=== PATIENT | male | born 1940 | race Hispanic/Latino ===

== ENCOUNTER 2017-12-17 08:02 | Day surgery (SDC) | payer OTHER ==
[~2017-12-17] VITALS: Ht 170.2 cm; Wt 85.3 kg
[~2017-12-17 08:02] MED LIST: ATOR40TA71 PO; CLOP75TA32 PO; GABA-531 PO; LISI-613 PO; METO50TA18 PO; OMEP20CA10 PO
[2017-12-17 08:06] VITALS: BP 127/74
[2017-12-17] MEDS: SODIUM CHLORIDE 0.9% 1000ML 1,000 ML IV ONE (09:15)
[2017-12-17] MEDS ORDERED: MEPERIDINE-PF 50 MG/ML SYG ONE ×3 (10:26→10:49)
[2017-12-17] MEDS ORDERED: MIDAZOLAM HCL 1 MG/ML 2ML VIAL ONE ×2 (10:26→10:49)
[2017-12-17 11:00] VITALS: BP 104/50
== END 2017-12-17 11:53 | disposition home or self-care (01) ==
LOC: DAH 08:02 → ENDO 08:02
PROVIDERS: ATTEND Internal Medicine Gastroenterology
DX: Z09 Encounter for follow-up examination after completed treatment for conditions other than malignant neoplasm (principal); Z86.010 Personal history of colon polyps; K57.30 Diverticulosis of large intestine without perforation or abscess without bleeding; Z68.38 Body mass index [BMI] 38.0-38.9, adult; I10 Essential (primary) hypertension; I25.10 Atherosclerotic heart disease of native coronary artery without angina pectoris; Z95.0 Presence of cardiac pacemaker; Z95.1 Presence of aortocoronary bypass graft; Z98.890 Other specified postprocedural states
CPT/HCPCS: G0105 ×8; A4606; J2175; J2250; J7030

== ENCOUNTER → 2021-11-24 | Outpatient (CLI) | payer OTHER ==
[~2021-11-24] MED LIST changes: -LISI-613 PO; +LISI20TA24 PO; -OMEP20CA10 PO; +OMEP20CA12 PO
== END | disposition home or self-care (01) ==
LOC: SHCH 10:15
PROVIDERS: ATTEND Internal Medicine Cardiovascular Disease
DX: I11.0 Hypertensive heart disease with heart failure (principal); I50.42 Chronic combined systolic (congestive) and diastolic (congestive) heart failure; I08.8 Other rheumatic multiple valve diseases; I48.0 Paroxysmal atrial fibrillation; I25.2 Old myocardial infarction; E78.5 Hyperlipidemia, unspecified; Z95.0 Presence of cardiac pacemaker; Z95.1 Presence of aortocoronary bypass graft
CPT/HCPCS: 93306

== ENCOUNTER → 2022-09-07 | Outpatient (CLI) | payer OTHER ==
[2022-09-07 12:43] LABS: CREATININE 1.2 mg/dL (0.5-1.5); POTASSIUM 4.7 mmol/L (3.5-5.1)
== END | disposition home or self-care (01) ==
LOC: LAB 08:30
PROVIDERS: ATTEND Internal Medicine Cardiovascular Disease
DX: I71.21 Aneurysm of the ascending aorta, without rupture (principal); I95.2 Hypotension due to drugs; I50.32 Chronic diastolic (congestive) heart failure
CPT/HCPCS: 36415; 80048; 83880

== ENCOUNTER → 2023-03-21 | Outpatient (CLI) | payer OTHER ==
[~2023-03-21] VITALS: Ht 170.2 cm; Wt 88.6 kg
[~2023-03-21] MED LIST changes: +AEC81 PO; +ATOR-2 PO; +DAPA10TA PO; +FOLIC ACID PO; +METO-409 PO; +PANT20TA18 PO; +SACU1TAB PO; +SPIR25TA6 PO; +TORS20TA4 PO; +VITAD50000 PO; +[UNRECOGNIZED DRUG - CODE] PO
[2023-03-21 15:31] LABS: BASOPHILS % (AUTO) 0.3 % (0.0-5.0); EOSINOPHILS % (AUTO) 1.3 % (0.0-8.0); HEMATOCRIT 33.5 % (42-54); LYMPHOCYTES % (AUTO) 11.3 % (21.0-51.0); MEAN CORPUSCULAR HEMOGLOBIN 35.6 pg (27.0-33.0); MEAN CORPUSCULAR HGB CONC 32.8 g/dL (32.0-36.0); MEAN CORPUSCULAR VOLUME 108.4 fL (79-99); PLATELET COUNT (AUTO) 94 K/uL (130-400); RED BLOOD CELL COUNT(AUTO) 3.09 MIL/uL (4.50-6.20); RED CELL DISTRIBUTION WIDTH 18.3 % (11.0-15.5); WHITE BLOOD COUNT (AUTO) 7.6 K/uL (4.8-10.8)
[2023-03-21 15:36] LABS: APPEARANCE,URINE CLEAR (CLEAR); BILIRUBIN,URINE NEGATIVE (NEGATIVE); COLOR,URINE LIGHT-YELLOW (YELLOW); GLUCOSE, URINE (UA) 500 mg/dL (NEGATIVE); KETONES,URINE NEGATIVE (NEGATIVE); LEUKOCYTE ESTERASE ,URINE 75 Leu/uL (NEGATIVE); NITRATE,URINE NEGATIVE (NEGATIVE); OCCULT BLOOD,URINE NEGATIVE (NEGATIVE); PH,URINE 5.5 (5.0-8.0); PROTEIN,URINE NEGATIVE (NEGATIVE); UROBILINOGEN,URINE 0.2 mg/dL (0.2-1.0)
[2023-03-21 15:43] LABS: MUCUS,URINE RARE LPF (None Seen); RBC,URINE 0-1 /HPF (0-1)
[2023-03-21 15:44] LABS: CREATININE 1.8 mg/dL (0.5-1.5); INR 0.97 (0.85-1.15); POTASSIUM 4.8 mmol/L (3.5-5.1); PROTHROMBIN TIME 10.6 SEC (9.6-11.6)
[2023-03-21 15:46] LABS: PARTIAL THROMBOPLASTIN TIME 28.2 SEC (26.3-35.5)
[2023-03-21 15:54] VITALS: BP 96/52
[2023-03-21 15:59] LABS: B-TYPE NATRIURETIC PEPTIDE 90 pg/mL (0-100)
== END | disposition home or self-care (01) ==
LOC: DAH 10:00 → EDSTATUS 15:00
PROVIDERS: ATTEND Internal Medicine Cardiovascular Disease
DX: Z01.810 Encounter for preprocedural cardiovascular examination (principal); I35.0 Nonrheumatic aortic (valve) stenosis; I50.22 Chronic systolic (congestive) heart failure; Z79.01 Long term (current) use of anticoagulants; Z79.899 Other long term (current) drug therapy
CPT/HCPCS: 36415; 71045; 80048; 81001; 83880; 85025; 85610; 85730; 87088; 93005

== ENCOUNTER 2023-08-21 07:34 | Observation (INO) | payer OTHER ==
[2023-08-19 08:42] LABS: EOSINOPHILS # (AUTO) 0.02 K/uL (0.00-0.70); EOSINOPHILS % (AUTO) 0.4 % (0.0-8.0); HEMATOCRIT 35.8 % (42-54); IMMATURE GRANULOCYTE ABSOLUTE 0.06 K/uL (0-1); LYMPHOCYTES % (AUTO) 20.3 % (21.0-51.0); MEAN CORPUSCULAR HEMOGLOBIN 36.5 pg (27.0-33.0); MEAN CORPUSCULAR HGB CONC 33.2 g/dL (32.0-36.0); MEAN CORPUSCULAR VOLUME 109.8 fL (79-99); MONOCYTES # (AUTO) 0.4 K/uL (0.1-1.0); MONOCYTES % (AUTO) 7.9 % (3.0-13.0); NEUTROPHILS # (AUTO) 3.5 K/uL (1.8-7.7); NEUTROPHILS % (AUTO) 70.2 % (40.0-77.0); PLATELET COUNT (AUTO) 110 K/uL (130-400); RED BLOOD CELL COUNT(AUTO) 3.26 MIL/uL (4.50-6.20); RED CELL DISTRIBUTION WIDTH 18.3 % (11.0-15.5); WHITE BLOOD COUNT (AUTO) 4.9 K/uL (4.8-10.8)
[2023-08-19 08:54] LABS: CREATININE 1.2 mg/dL (0.5-1.5); POTASSIUM 4.4 mmol/L (3.5-5.1)
[2023-08-19 08:55] LABS: INR 0.94 (0.85-1.15)
[2023-08-19 09:14] VITALS: BP 117/55; PULSE 78; RESP 19
[2023-08-21] VITALS (12 sets, daily range): BP systolic 112–132; BP diastolic 43–60; PULSE 56–88; RESP 16–20; O2SAT 95–98
[~2023-08-21] VITALS: Ht 170.2 cm; Wt 81.3 kg
[~2023-08-21 07:34] MED LIST changes: -ATOR40TA71 PO; +ESCI10TA PO; +FERR325T29 PO; -GABA-531 PO; -LISI20TA24 PO; -METO50TA18 PO; +MULT-1289 PO; +NITR0.4T50 SL; -OMEP20CA12 PO; -PANT20TA18 PO; -SPIR25TA6 PO; +TORS10TA18 PO; -TORS20TA4 PO
[2023-08-21] MEDS ORDERED: 0.9%NACL 1000ML 1,000 ML IV ONE (08:32)
[2023-08-21] MEDS ORDERED: LIDOCAINE HCL 1% MDV 50ML VIAL ONE (10:28)
[2023-08-21] MEDS ORDERED: BUPIVACAINE/PF 0.25% 30ML VIAL IJ ONE (10:29)
[2023-08-21] MEDS ORDERED: MIDAZOLAM HCL 1 MG/ML 2ML VIAL ONE ×5 (10:29→15:44)
[2023-08-21] MEDS ORDERED: MEPERIDINE-PF 25 MG/ML SYG ONE ×5 (10:29→15:43)
[2023-08-21] MEDS ORDERED: CEFAZOLIN SODIUM 1 GM VIAL ONE ×2 (10:30→14:29)
[2023-08-21] MEDS ORDERED: IOHEXOL-350 50ML VIAL IV ONE ×3 (10:32→13:06)
[2023-08-21] MEDS ORDERED: THROMBIN-JMI 5000 UNIT/VIAL TP ONE ×2 (15:46→15:58)
[2023-08-21] MEDS ORDERED: BACITRACIN 1 EACH PACKET TP ONE ×2 (16:09→16:13)
[2023-08-21] MEDS ORDERED: NITROGLYCERIN 0.4 MG SL TAB SL SCH (17:30)
[2023-08-21] MEDS ORDERED: ACETAMINOPHEN 500 MG TABLET PO PRN (17:30)
[2023-08-21] MEDS: ACETAMINOPHEN WITH CODEINE 1 TAB TAB PO PRN (17:59)
[2023-08-21] MEDS: SACUBITRIL/VALSARTAN 1 EACH TABLET PO SCH (20:18)
[2023-08-21] MEDS ORDERED: ATORVASTATIN 40 MG TABLET PO SCH (21:00)
[2023-08-21] MEDS ORDERED: NON-FORMULARY MEDICATION 1 EACH (Atorvastatin Calcium 80 MG) PO SCH (21:00)
[2023-08-22] MEDS: ACETAMINOPHEN WITH CODEINE 1 TAB TAB PO PRN ×2 (00:13→08:58)
[2023-08-22 00:25] VITALS: BP 129/54; PULSE 63; RESP 20
[2023-08-22 03:25] VITALS: BP 112/61; PULSE 60; RESP 18
[2023-08-22 05:03] LABS: BASOPHILS # (AUTO) 0.01 K/uL (0.00-0.20); BASOPHILS % (AUTO) 0.1 % (0.0-5.0); HEMATOCRIT 30.1 % (42-54); IMMATURE GRANULOCYTE ABSOLUTE 0.08 K/uL (0-1); LYMPHOCYTES # (AUTO) 0.7 K/uL (1.0-4.8); LYMPHOCYTES % (AUTO) 8.3 % (21.0-51.0); MEAN CORPUSCULAR HEMOGLOBIN 36.2 pg (27.0-33.0); MEAN CORPUSCULAR HGB CONC 32.2 g/dL (32.0-36.0); MEAN CORPUSCULAR VOLUME 112.3 fL (79-99); MONOCYTES # (AUTO) 0.8 K/uL (0.1-1.0); MONOCYTES % (AUTO) 9.6 % (3.0-13.0); NEUTROPHILS # (AUTO) 6.4 K/uL (1.8-7.7); PLATELET COUNT (AUTO) 73 K/uL (130-400); RED BLOOD CELL COUNT(AUTO) 2.68 MIL/uL (4.50-6.20); RED CELL DISTRIBUTION WIDTH 18.2 % (11.0-15.5); WHITE BLOOD COUNT (AUTO) 7.9 K/uL (4.8-10.8)
[2023-08-22 05:16] LABS: CREATININE 1.1 mg/dL (0.5-1.5); POTASSIUM 4.5 mmol/L (3.5-5.1)
[2023-08-22 05:21] LABS: WBC MORPHOLOGY CONSISTENT W/DIFF
[2023-08-22 07:00] VITALS: BP 130/57; PULSE 62; RESP 20
[2023-08-22] MEDS: SACUBITRIL/VALSARTAN 1 EACH TABLET PO SCH (08:56)
[2023-08-22] MEDS ORDERED: NON-FORMULARY MEDICATION 1 EACH (Metoprolol Succinate 100 MG) PO SCH (09:00)
[2023-08-22] MEDS ORDERED: DANAZOL 200 MG PO SCH (09:00)
[2023-08-22] MEDS ORDERED: MULTIVITAMIN TABLET PO SCH (09:00)
[2023-08-22] MEDS ORDERED: [UNRECOGNIZED DRUG - OTHER] PO SCH (09:00)
[2023-08-22] MEDS ORDERED: CLOPIDOGREL 75MG TAB PO SCH (09:00)
[2023-08-22] MEDS ORDERED: NON-FORMULARY MEDICATION 1 EACH (Escitalopram Oxalate (Lexapro) 10 MG) PO SCH (09:00)
[2023-08-22] MEDS ORDERED: CITALOPRAM 20 MG TABLET PO SCH (09:00)
[2023-08-22] MEDS ORDERED: CHOLECALCIFEROL 50000 UNIT PO SCH (09:00)
[2023-08-22] MEDS ORDERED: FOLIC ACID 1000 MCG PO SCH (09:00)
[2023-08-22] MEDS ORDERED: TORSEMIDE 20 MG TAB PO SCH (09:00)
[2023-08-22] MEDS ORDERED: NON-FORMULARY MEDICATION 1 EACH (Torsemide 10 MG) PO SCH (09:00)
[2023-08-22] MEDS ORDERED: FOLIC ACID 1 MG TABLET PO SCH (09:00)
[2023-08-22] MEDS ORDERED: FERROUS SULFATE 325 MG PO SCH (09:00)
[2023-08-22] MEDS ORDERED: FERROUS SULFATE 325 MG TABLET.DR PO SCH (09:00)
[2023-08-22] MEDS ORDERED: ASPIRIN 81 MG EC TAB PO SCH (09:00)
[2023-08-22] MEDS ORDERED: Dapagliflozin Propanediol (Farxiga) 10 MG PO SCH (09:00)
[2023-08-22] MEDS ORDERED: METOPROLOL SUCCINATE 50 MG TAB.SR.24H PO SCH (09:00)
[2023-08-22 11:00] VITALS: BP 108/38; PULSE 62; RESP 20
[2023-08-22] MEDS ORDERED: TRAM50TA4 PO (14:22)
== END 2023-08-22 16:40 | disposition home or self-care (01) ==
LOC: DAH 07:34 → DAHIP 07:35 → INTOOBSV 07:35 → DAH 07:35 → 2AH 17:28
PROVIDERS: ADMIT Internal Medicine Cardiovascular Disease; ATTEND Internal Medicine Cardiovascular Disease
DX: I25.5 Ischemic cardiomyopathy (principal); I11.0 Hypertensive heart disease with heart failure; I50.42 Chronic combined systolic (congestive) and diastolic (congestive) heart failure; I42.0 Dilated cardiomyopathy; I44.1 Atrioventricular block, second degree; I48.0 Paroxysmal atrial fibrillation; I21.3 ST elevation (STEMI) myocardial infarction of unspecified site; I25.84 Coronary atherosclerosis due to calcified coronary lesion; I25.810 Atherosclerosis of coronary artery bypass graft(s) without angina pectoris; F17.210 Nicotine dependence, cigarettes, uncomplicated; Z95.0 Presence of cardiac pacemaker; Z95.1 Presence of aortocoronary bypass graft; Z98.890 Other specified postprocedural states; Z85.46 Personal history of malignant neoplasm of prostate; Z79.82 Long term (current) use of aspirin
CPT/HCPCS: 80048 ×2; 85025 ×2; 85610; 85730; 36415 ×2; 93005 ×2; 33225; 33249; 71045; C1769 ×10; C1894; C1882; C1900; C1896; C1895; C1725; G0378 ×24; J0690 ×2; J7030; J0665; J2250 ×5; J3490 ×3; J2175 ×5; Q9967 ×3; A4215; A4223 ×3; A4222; A4221; A4663; A4216; A4606; 99156; 99157

== ENCOUNTER → 2023-09-06 | Outpatient (CLI) | payer OTHER ==
[~2023-09-06] MED LIST changes: +TRAM50TA4 PO
[2023-09-06 12:34] LABS: CREATININE 1.5 mg/dL (0.5-1.5); POTASSIUM 4.6 mmol/L (3.5-5.1)
== END | disposition home or self-care (01) ==
LOC: LAB 09:55
PROVIDERS: ATTEND Internal Medicine Cardiovascular Disease
DX: I50.32 Chronic diastolic (congestive) heart failure (principal); D68.59 Other primary thrombophilia
CPT/HCPCS: 36415; 80048; 83880

== ENCOUNTER 2023-09-17 07:25 | Day surgery (SDC) | payer OTHER ==
[~2023-09-17] VITALS: Ht 170.2 cm; Wt 81.2 kg
[2023-09-17] VITALS (9 sets, daily range): BP systolic 152–157; BP diastolic 48–54; PULSE 60–63; RESP 12–14; TEMP 98; O2SAT 95
[2023-09-17 09:12] LABS: CREATININE 1.2 mg/dL (0.5-1.5)
[2023-09-17 09:17] LABS: ALBUMIN 3.2 g/dL (3.5-5.0); BASOPHILS # (AUTO) 0.02 K/uL (0.00-0.20); BASOPHILS % (AUTO) 0.3 % (0.0-5.0); BILIRUBIN,TOTAL 0.8 mg/dL (0.2-1.0); HEMATOCRIT 33.7 % (42-54); IMMATURE GRANULOCYTE ABSOLUTE 0.14 K/uL (0-1); LYMPHOCYTES # (AUTO) 0.5 K/uL (1.0-4.8); LYMPHOCYTES % (AUTO) 7.1 % (21.0-51.0); MEAN CORPUSCULAR HEMOGLOBIN 37.4 pg (27.0-33.0); MEAN CORPUSCULAR HGB CONC 32.9 g/dL (32.0-36.0); MEAN CORPUSCULAR VOLUME 113.5 fL (79-99); MONOCYTES # (AUTO) 0.5 K/uL (0.1-1.0); MONOCYTES % (AUTO) 7.7 % (3.0-13.0); NEUTROPHILS # (AUTO) 5.7 K/uL (1.8-7.7); NEUTROPHILS % (AUTO) 82.9 % (40.0-77.0); NUCLEATED RED BLOOD CELLS 0.4 % (0.0-0.19); PLATELET COUNT (AUTO) 157 K/uL (130-400); RED BLOOD CELL COUNT(AUTO) 2.97 MIL/uL (4.50-6.20); RED CELL DISTRIBUTION WIDTH 18.6 % (11.0-15.5); TOTAL PROTEIN, SERUM 6.3 g/dL (6.0-8.3); WHITE BLOOD COUNT (AUTO) 6.9 K/uL (4.8-10.8)
[2023-09-17] MEDS ORDERED: VANCOMYCIN KIT 1 GM/250 ML IV.KIT IV ONE (09:30)
[2023-09-17 10:06] LABS: BAND NEUTROPHILS % (MANUAL) 16 % (0-2); LYMPHOCYTES % (MANUAL) 9 % (22-44); MONOCYTES % (MANUAL) 10 % (2-9); SEGMENTED NEUTROPHILS % 65 % (40-70); TOTAL CELLS COUNTED 100
[2023-09-17 10:07] LABS: MAN.DIFF COMMENT-IMPRESSION MANUAL DIFFERENTIAL; PLATELET MORPHOLOGY COMMENT ADEQUATE; WBC MORPHOLOGY CONSISTENT W/DIFF
[2023-09-17 11:04] LABS: INR 0.98 (0.85-1.15); PROTHROMBIN TIME 11.4 SEC (9.6-11.6)
[2023-09-17 11:05] LABS: PARTIAL THROMBOPLASTIN TIME 26.8 SEC (26.3-35.5)
[2023-09-17] MEDS ORDERED: LIDOCAINE HCL 1% MDV 50ML VIAL ONE (12:55)
[2023-09-17] MEDS ORDERED: MEPERIDINE-PF 25 MG/ML SYG ONE ×3 (12:55→14:22)
[2023-09-17] MEDS ORDERED: MIDAZOLAM HCL 1 MG/ML 2ML VIAL ONE (12:56)
[2023-09-17] MEDS ORDERED: BUPIVACAINE/PF 0.25% 30ML VIAL IJ ONE (12:56)
[2023-09-17] MEDS ORDERED: IOHEXOL-350 50ML VIAL IV ONE (12:56)
[2023-09-17] MEDS ORDERED: VANCOMYCIN 1G/250ML KIT 250 ML IV ONE (13:01)
[2023-09-17] MEDS ORDERED: THROMBIN-JMI 5000 UNIT/VIAL TP ONE (13:51)
[2023-09-17] MEDS ORDERED: BACITRACIN 1 EACH PACKET TP ONE (14:25)
[2023-09-17] MEDS ORDERED: CEPH500B PO (14:34)
[2023-09-17] MEDS ORDERED: DOXY100C5 PO (14:34)
[2023-09-17] MEDS ORDERED: ACETAMINOPHEN 500 MG TABLET PO PRN (15:00)
[2023-09-17] MEDS ORDERED: ACETAMINOPHEN WITH CODEINE 1 TAB TAB PO PRN (15:00)
[2023-09-17] MEDS ORDERED: ACETAMINOPHEN 500 MG TABLET ONE (16:22)
== END 2023-09-17 17:10 | disposition home or self-care (01) ==
LOC: EDH 07:25 → EDHIP 07:26 → UNDOADMOB 07:26 → DAH 07:26 → DAHIP 07:27 → EDHIP 07:27 → EDH 13:15 → DAH 17:10
PROVIDERS: ATTEND Internal Medicine Cardiovascular Disease
DX: T82.897A Other specified complication of cardiac prosthetic devices, implants and grafts, initial encounter (principal); I25.2 Old myocardial infarction; I11.0 Hypertensive heart disease with heart failure; I50.32 Chronic diastolic (congestive) heart failure; I48.0 Paroxysmal atrial fibrillation; I35.0 Nonrheumatic aortic (valve) stenosis; E78.2 Mixed hyperlipidemia; D64.89 Other specified anemias; Y83.8 Other surgical procedures as the cause of abnormal reaction of the patient, or of later complication, without mention of misadventure at the time of the procedure; Z82.49 Family history of ischemic heart disease and other diseases of the circulatory system; Z80.9 Family history of malignant neoplasm, unspecified; Z83.3 Family history of diabetes mellitus; Z87.891 Personal history of nicotine dependence; Z79.82 Long term (current) use of aspirin; Z79.899 Other long term (current) drug therapy; Z86.010 Personal history of colon polyps; Z95.0 Presence of cardiac pacemaker; Z98.49 Cataract extraction status, unspecified eye; Z98.890 Other specified postprocedural states
CPT/HCPCS: 10140; 99285; 80053; 85025; 85610; 85730; 87070; 87076; 36415; J0665; J2250; J3370 ×2; J3490 ×2; J2175 ×2; 99156; 99157; Q9967

== ENCOUNTER → 2023-10-21 | Outpatient (CLI) | payer OTHER ==
[~2023-10-21] MED LIST changes: +CEPH500B PO; +DOXY100C5 PO
[2023-10-21 16:40] LABS: BASOPHILS # (AUTO) 0.01 K/uL (0.00-0.20); BASOPHILS % (AUTO) 0.2 % (0.0-5.0); EOSINOPHILS # (AUTO) 0.13 K/uL (0.00-0.70); HEMATOCRIT 34.8 % (42-54); IMMATURE GRANULOCYTE ABSOLUTE 0.05 K/uL (0-1); LYMPHOCYTES # (AUTO) 1.3 K/uL (1.0-4.8); LYMPHOCYTES % (AUTO) 30.5 % (21.0-51.0); MEAN CORPUSCULAR HEMOGLOBIN 37.4 pg (27.0-33.0); MEAN CORPUSCULAR HGB CONC 32.5 g/dL (32.0-36.0); MEAN CORPUSCULAR VOLUME 115.2 fL (79-99); MONOCYTES # (AUTO) 0.4 K/uL (0.1-1.0); MONOCYTES % (AUTO) 8.9 % (3.0-13.0); NEUTROPHILS # (AUTO) 2.5 K/uL (1.8-7.7); NEUTROPHILS % (AUTO) 56.3 % (40.0-77.0); PLATELET COUNT (AUTO) 81 K/uL (130-400); RED BLOOD CELL COUNT(AUTO) 3.02 MIL/uL (4.50-6.20); RED CELL DISTRIBUTION WIDTH 17.6 % (11.0-15.5); WHITE BLOOD COUNT (AUTO) 4.4 K/uL (4.8-10.8)
[2023-10-21 16:51] LABS: CREATININE 1.2 mg/dL (0.5-1.5)
== END | disposition home or self-care (01) ==
LOC: LAB 11:37
PROVIDERS: ATTEND Internal Medicine Cardiovascular Disease
DX: I50.32 Chronic diastolic (congestive) heart failure (principal); I48.0 Paroxysmal atrial fibrillation; I25.2 Old myocardial infarction
CPT/HCPCS: 36415; 80048; 85025

== ENCOUNTER 2024-03-29 14:47 | Emergency (ER) | payer OTHER ==
[~2024-03-29] VITALS: Ht 170.2 cm; Wt 86.2 kg
[2024-03-29 15:46] LABS: BASOPHILS # (AUTO) 0.01 K/uL (0.00-0.20); BASOPHILS % (AUTO) 0.2 % (0.0-5.0); EOSINOPHILS # (AUTO) 0.03 K/uL (0.00-0.70); EOSINOPHILS % (AUTO) 0.5 % (0.0-8.0); HEMATOCRIT 36.9 % (42-54); IMMATURE GRANULOCYTE ABSOLUTE 0.13 K/uL (0-1); LYMPHOCYTES % (AUTO) 16.1 % (21.0-51.0); MEAN CORPUSCULAR HEMOGLOBIN 36.2 pg (27.0-33.0); MEAN CORPUSCULAR HGB CONC 33.6 g/dL (32.0-36.0); MEAN CORPUSCULAR VOLUME 107.6 fL (79-99); MONOCYTES # (AUTO) 0.7 K/uL (0.1-1.0); MONOCYTES % (AUTO) 11.2 % (3.0-13.0); NEUTROPHILS # (AUTO) 4.5 K/uL (1.8-7.7); PLATELET COUNT (AUTO) 145 K/uL (130-400); RED BLOOD CELL COUNT(AUTO) 3.43 MIL/uL (4.50-6.20); RED CELL DISTRIBUTION WIDTH 17.3 % (11.0-15.5); WHITE BLOOD COUNT (AUTO) 6.4 K/uL (4.8-10.8)
[2024-03-29 15:52] LABS: CREATININE 1.3 mg/dL (0.5-1.3)
[2024-03-29 17:00] VITALS: BP 138/68; PULSE 68; RESP 18; O2SAT 98
== END 2024-03-29 18:24 | disposition home or self-care (01) ==
LOC: EDH 14:47
DX: E86.0 Dehydration (principal); E11.9 Type 2 diabetes mellitus without complications; E78.00 Pure hypercholesterolemia, unspecified; I48.91 Unspecified atrial fibrillation; I11.0 Hypertensive heart disease with heart failure; I50.9 Heart failure, unspecified; Z79.02 Long term (current) use of antithrombotics/antiplatelets; Z79.899 Other long term (current) drug therapy; Z95.1 Presence of aortocoronary bypass graft; Z95.810 Presence of automatic (implantable) cardiac defibrillator
CPT/HCPCS: 36415; 80048; 85025

== ENCOUNTER → 2024-08-28 | Outpatient (CLI) | payer OTHER ==
[2024-08-28 12:20] LABS: BASOPHILS # (AUTO) 0.01 K/uL (0.00-0.20); BASOPHILS % (AUTO) 0.2 % (0.0-5.0); EOSINOPHILS # (AUTO) 0.12 K/uL (0.00-0.70); EOSINOPHILS % (AUTO) 2.1 % (0.0-8.0); HEMATOCRIT 39.7 % (42-54); IMMATURE GRANULOCYTE ABSOLUTE 0.08 K/uL (0-1); LYMPHOCYTES # (AUTO) 1.1 K/uL (1.0-4.8); LYMPHOCYTES % (AUTO) 19.5 % (21.0-51.0); MEAN CORPUSCULAR HEMOGLOBIN 36.4 pg (27.0-33.0); MEAN CORPUSCULAR HGB CONC 33.5 g/dL (32.0-36.0); MEAN CORPUSCULAR VOLUME 108.8 fL (79-99); MONOCYTES # (AUTO) 0.6 K/uL (0.1-1.0); MONOCYTES % (AUTO) 9.8 % (3.0-13.0); NEUTROPHILS # (AUTO) 3.9 K/uL (1.8-7.7); PLATELET COUNT (AUTO) 120 K/uL (130-400); RED BLOOD CELL COUNT(AUTO) 3.65 MIL/uL (4.50-6.20); RED CELL DISTRIBUTION WIDTH 16.6 % (11.0-15.5); WHITE BLOOD COUNT (AUTO) 5.8 K/uL (4.8-10.8)
[2024-08-28 12:35] LABS: ALBUMIN 3.7 g/dL (3.5-5.0); BILIRUBIN,TOTAL 0.7 mg/dL (0.2-1.0); CREATININE 1.5 mg/dL (0.5-1.3); MAGNESIUM 2.1 mg/dL (1.80-2.40); POTASSIUM 4.5 mmol/L (3.5-5.1); TOTAL PROTEIN, SERUM 7.1 g/dL (6.0-8.3)
== END | disposition home or self-care (01) ==
LOC: LAB 09:47
PROVIDERS: ATTEND Internal Medicine Cardiovascular Disease
DX: I50.22 Chronic systolic (congestive) heart failure (principal); Z95.2 Presence of prosthetic heart valve
CPT/HCPCS: 36415; 80053; 80061; 83735; 83880; 85025